=== PATIENT | male | born 2000 | race Caucasian/White ===

== ENCOUNTER 2022-08-07 02:10 | Emergency (ER) | payer MEDICAID ==
[~2022-08-07] VITALS: Ht 175.3 cm; Wt 113.4 kg
[2022-08-07 02:40] VITALS: BP 135/66
--- NOTE | 2022-08-07 02:50 | NUR ---
TO LOBBY A/W BED AMBULATORY
--- NOTE | 2022-08-07 03:24 | NUR ---
Patient taken to bed 11.
--- NOTE | 2022-08-07 04:24 | NUR ---
Dr. Hernandez examining patient.
[2022-08-07] MEDS ORDERED: FAMOTIDINE 20 MG TAB PO ONE (04:35)
[2022-08-07] MEDS ORDERED: diphenhydrAMINE 50 MG CAP PO ONE (04:35)
[2022-08-07] MEDS ORDERED: EPIN1KIT31 IM (04:38)
[2022-08-07] MEDS ORDERED: [UNRECOGNIZED DRUG - CODE] PO (04:38)
[2022-08-07] MEDS ORDERED: BENC TP (04:38)
[2022-08-07] MEDS ORDERED: FAMO-90 PO (04:38)
[2022-08-07 05:00] VITALS: BP 128/66
--- NOTE | 2022-08-07 05:00 | NUR ---
Patient discharged with v/s stable. Written and verbal after care instructions given and explained. Patient alert, oriented and verbalized understanding of instructions. Ambulatory with steady gait. All questions addressed prior to discharge. ID band removed. Patient advised to follow up with PMD. Rx of Benadryl, Epipen and Pepcid given. Patient educated on indication of medication including possible reaction and side effects. Opportunity to ask questions provided and answered.
== END 2022-08-07 05:00 | disposition home or self-care (01) ==
LOC: MED 02:10
DX: L50.9 Urticaria, unspecified (principal); I10 Essential (primary) hypertension; Z79.899 Other long term (current) drug therapy
CPT/HCPCS: 99283; Q0163

== ENCOUNTER 2024-06-12 20:34 | Emergency (ER) | payer MEDICAID ==
[~2024-06-12] VITALS: Ht 172.7 cm; Wt 117.9 kg
[~2024-06-12 20:34] MED LIST: BENC TP; EPIN1KIT31 IM; FAMO-90 PO; [UNRECOGNIZED DRUG - CODE] PO
[2024-06-12 21:06] VITALS: BP 128/80; PULSE 86; RESP 18; TEMP 98.1; O2SAT 99
[2024-06-12 21:20] VITALS: O2SAT 99
== END 2024-06-12 21:29 | disposition left against medical advice (07) ==
LOC: MED 20:34
DX: R07.89 Other chest pain (principal); R11.2 Nausea with vomiting, unspecified; R19.7 Diarrhea, unspecified; Z53.21 Procedure and treatment not carried out due to patient leaving prior to being seen by health care provider
CPT/HCPCS: 93005